=== PATIENT | male | born 1995 | race Caucasian/White ===

== ENCOUNTER 2017-01-27 22:54 | Emergency (ER) | payer OTHER ==
[~2017-01-27] VITALS: Ht 177.8 cm; Wt 61.4 kg
[~2017-01-27 22:54] MED LIST: ULTRAM 50MG TAB50 MG PO; ZENATANE30 MG PO; ZOFRAN8 MG PO
[2017-01-27 22:56] VITALS: BP 126/80; TEMP 98
[2017-01-27] MEDS ORDERED: FLEXERIL 1010 MG/TAB PO (23:38)
[2017-01-27 23:59] VITALS: PULSE 78
== END 2017-01-28 00:01 | disposition home or self-care (01) ==
LOC: COL.ER 22:54
DX: S06.0X0A Concussion without loss of consciousness, initial encounter (principal); S16.1XXA Strain of muscle, fascia and tendon at neck level, initial encounter; V48.0XXA Car driver injured in noncollision transport accident in nontraffic accident, initial encounter; Y92.488 Other paved roadways as the place of occurrence of the external cause

== ENCOUNTER 2017-06-26 13:45 | Emergency (ER) | payer OTHER ==
[~2017-06-26] VITALS: Ht 180.3 cm; Wt 61.4 kg
[~2017-06-26 13:45] MED LIST changes: +FLEXERIL 1010 MG/TAB PO
[2017-06-26 13:49] VITALS: BP 155/83; TEMP 97.5
[2017-06-26] MEDS ORDERED: PREDNISONE20 MG (13:52)
[2017-06-26 16:53] VITALS: PULSE 78
== END 2017-06-26 16:53 | disposition home or self-care (01) ==
LOC: COL.ER 13:45
DX: L50.9 Urticaria, unspecified (principal)